=== PATIENT | male | born 1995 | race Two or more races ===

== ENCOUNTER 2021-02-25 07:15 | Emergency (ER) | payer SELFPAY ==
[~2021-02-25] VITALS: Ht 162.6 cm; Wt 69.4 kg
[2021-02-25] MEDS ORDERED: MORPHINE SULFATE 4 MG/ML SYR/VIAL IV ONE (07:45)
[2021-02-25] MEDS ORDERED: SODIUM CHLORIDE 0.9% 1,000 ML IV ONE (07:45)
[2021-02-25] MEDS ORDERED: SODIUM CHLORIDE 0.9% 1,000 ML IVB ONE (07:45)
[2021-02-25] MEDS ORDERED: ONDANSETRON HCL 4 MG/2 ML VIAL IV ONE (07:45)
[2021-02-25 07:48] LABS: Basophils # (auto) 0 10 ^3/uL (0-0.2); Basophils % (auto) 0.1 % (0.0-2.0); Eosinophils # (auto) 0.1 10 ^3/uL (0-0.8); Eosinophils % (auto) 0.9 % (0.0-7.0); Hematocrit 48.9 % (41.0-53.0); Hemoglobin 16.8 g/dL (13.5-17.5); Lymphocytes # (auto) 0.6 10 ^3/uL (0.4-5.4); Lymphocytes % (auto) 4.8 % (10.0-50.0); Mean Corpuscular Hemoglobin 30.3 pg (28.0-32.0); Mean Corpuscular Hgb Conc. 34.3 g/dL (32.0-36.0); Mean Corpuscular Volume 88.4 fL (80.0-100.0); Monocytes # (auto) 0.3 10 ^3/uL (0-1.3); Monocytes % (auto) 2.4 % (0.0-12.0); Neutrophils # (auto) 11.1 10 ^3/uL (1.6-8.6); Neutrophils % (auto) 91.8 % (37.0-80.0); Nucleated Red Blood Cells % 0.2 %; Red Blood Cells 5.53 10^6/uL (4.5-5.90); Red Cell Distribution Width 13.3 % (11.8-14.3); White Blood Cell 12.1 10^3/uL (4.4-10.8)
[2021-02-25 07:55] LABS: Urine Bacteria NONE SEEN /hpf (None Seen); Urine Blood Negative /uL (Negative); Urine Mucus FEW (None Seen); Urine Specific Gravity 1.028 (1.001-1.035); Urine WBC 3 /hpf (0 - 3)
[2021-02-25 08:06] LABS: Albumin 4.5 g/dL (3.4-5.0); Calcium 9.3 mg/dL (8.5-10.1); Potassium 3.8 mmol/L (3.5-5.1)
[2021-02-25 08:09] LABS: BUN/Creatinine Ratio 10.4; Bilirubin, Total 0.7 mg/dL (0.2-1.0); Total Protein 8.2 g/dL (6.4-8.2)
[2021-02-25 08:12] LABS: Alcohol, Urine < 3.0 mg/dL (0-10); Barbiturate Scree,Urine NEGATIVE (NEGATIVE); Benzodiazephine Screen, Urine NEGATIVE (NEGATIVE); Cannabinoid Screen, Urine POSITIVE (NEGATIVE); Cocaine Screen, Urine NEGATIVE (NEGATIVE); Opiate Scree,Urine NEGATIVE (NEGATIVE); Phencyclidine Screen, Urine NEGATIVE (NEGATIVE)
[2021-02-25 08:22] LABS: Amphetamine Screen, Urine NEGATIVE (NEGATIVE)
[2021-02-25] MEDS ORDERED: cefTRIAXone 1GM/50ML D5W 50 ML IV ONE (08:45)
[2021-02-25 10:41] VITALS: BP 91/47
== END 2021-02-25 11:39 | disposition home or self-care (01) ==
LOC: ER 07:15
DX: K52.9 Noninfective gastroenteritis and colitis, unspecified (principal)
CPT/HCPCS: 36415; 74176; 80053; 80307; 81001; 83690; 85025; 96361; 96365; 96375; 99284; J0696; J2270; J2405; J7030

== ENCOUNTER 2021-03-03 07:45 | Inpatient (IN) | payer MEDICAID, OTHER ==
[~2021-03-03] VITALS: Ht 162.6 cm; Wt 66.2 kg
[2021-03-03 08:32] LABS: Urine Bacteria NONE SEEN /hpf (None Seen); Urine Blood Negative /uL (Negative); Urine Mucus FEW (None Seen); Urine Specific Gravity 1.025 (1.001-1.035); Urine WBC 1 /hpf (0 - 3)
[2021-03-03 08:40] LABS: Albumin 4.6 g/dL (3.4-5.0); Calcium 9.1 mg/dL (8.5-10.1); Potassium 3.7 mmol/L (3.5-5.1)
[2021-03-03 08:43] LABS: BUN/Creatinine Ratio 8.5; Bilirubin, Total 1.1 mg/dL (0.2-1.0); Total Protein 8.2 g/dL (6.4-8.2)
[2021-03-03 08:57] LABS: Basophils # (auto) 0.1 10 ^3/uL (0-0.2); Neutrophils # (auto) 5.9 10 ^3/uL (1.6-8.6); Nucleated Red Blood Cells % 0.3 %
[2021-03-03 08:59] LABS: Basophils % (auto) 1.1 % (0.0-2.0); Eosinophils # (auto) 1.4 10 ^3/uL (0-0.8); Eosinophils % (auto) 14.2 % (0.0-7.0); Hematocrit 51.2 % (41.0-53.0); Hemoglobin 18.5 g/dL (13.5-17.5); Lymphocytes # (auto) 1.6 10 ^3/uL (0.4-5.4); Lymphocytes % (auto) 16.2 % (10.0-50.0); Mean Corpuscular Hemoglobin 31.6 pg (28.0-32.0); Mean Corpuscular Hgb Conc. 36.1 g/dL (32.0-36.0); Mean Corpuscular Volume 87.7 fL (80.0-100.0); Monocytes # (auto) 1.1 10 ^3/uL (0-1.3); Neutrophils % (auto) 57.5 % (37.0-80.0); Platelet Count (auto) 193 10^3/uL (140-450); Red Blood Cells 5.84 10^6/uL (4.5-5.90); Red Cell Distribution Width 13.7 % (11.8-14.3); White Blood Cell 10.2 10^3/uL (4.4-10.8)
[2021-03-03] MEDS ORDERED: ONDANSETRON HCL 4 MG/2 ML VIAL IV ONE (11:30)
[2021-03-03] MEDS ORDERED: SODIUM CHLORIDE 0.9% 1,000 ML IVB ONE (11:30)
[2021-03-03] MEDS ORDERED: IOHEXOL 300 MG/ML 100ML BOTTLE IJ ONE (11:42)
[2021-03-03] MEDS ORDERED: PANTOPRAZOLE 40 MG/10 ML VIAL INJ IV ONE (13:15)
[2021-03-03] MEDS ORDERED: metroNIDAZOLE 500MG/100ML 100 ML IV ONE (14:00)
[2021-03-03] MEDS ORDERED: MORPHINE SULF INJ 2 MG/ML SYRINGE 1ML IV PRN (15:15)
[2021-03-03] MEDS ORDERED: ACETAMINOPHEN 325 MG TAB PO PRN (15:15)
[2021-03-03] MEDS ORDERED: HYDROcodone-ACET 5/325MG TAB PO PRN (15:15)
[2021-03-03] MEDS ORDERED: ONDANSETRON HCL 4 MG/2 ML VIAL IV PRN (15:15)
[2021-03-03] MEDS: LACTATED RINGER'S 1,000 ML IV SCH (15:34)
[2021-03-03] MEDS: NYSTATIN (MOUTH-THROAT) 500,000 UNITS/5 ML SUSP MT SCH ×2 (18:08→21:34)
[2021-03-03] MEDS: metroNIDAZOLE 500MG/100ML 100 ML IV SCH (21:34)
[2021-03-03 21:47] VITALS: BP 121/67
[2021-03-04] MEDS: LACTATED RINGER'S 1,000 ML IV SCH ×3 (01:54→19:30)
[2021-03-04 05:42] VITALS: BP 113/68
[2021-03-04] MEDS: NYSTATIN (MOUTH-THROAT) 500,000 UNITS/5 ML SUSP MT SCH ×4 (05:44→21:58)
[2021-03-04] MEDS: metroNIDAZOLE 500MG/100ML 100 ML IV SCH ×3 (05:44→21:56)
[2021-03-04 06:48] LABS: Hematocrit 46.2 % (41.0-53.0); Hemoglobin 16.2 g/dL (13.5-17.5); Mean Corpuscular Hemoglobin 31.4 pg (28.0-32.0); Mean Corpuscular Hgb Conc. 35.1 g/dL (32.0-36.0); Mean Corpuscular Volume 89.6 fL (80.0-100.0); Platelet Count (auto) 170 10^3/uL (140-450); Red Blood Cells 5.16 10^6/uL (4.5-5.90); Red Cell Distribution Width 13.6 % (11.8-14.3); White Blood Cell 8.5 10^3/uL (4.4-10.8)
[2021-03-04 06:50] LABS: Calcium 8.5 mg/dL (8.5-10.1); Magnesium 2.6 mg/dL (1.6-2.6); Potassium 3.9 mmol/L (3.5-5.1)
[2021-03-04 06:53] LABS: BUN/Creatinine Ratio 10.8
[2021-03-04 07:04] LABS: Band Neutrophils % (manual) 0; Basophils % (manual) 0 (0.0-2.0); Blast Cells 0; Metamyelocytes % 0; Myelocytes % 0; Promyelocytes % 0; Reactive Lymphocytes 0
[2021-03-04 08:06] LABS: Eosinophils % (manual) 20 (0-7); Lymphocytes % (manual) 21 (10.0-50.0); Monocytes % (manual) 8 (0-12)
[2021-03-04 09:00] VITALS: BP 119/67
[2021-03-04] MEDS: levoFLOXacin 500MG 100 ML IV SCH (09:02)
[2021-03-04] MEDS ORDERED: PANTOPRAZOLE 40 MG/10 ML VIAL INJ IV SCH ×2 (10:00→22:00)
[2021-03-04 13:00] VITALS: BP 123/66
[2021-03-04 16:43] VITALS: BP 118/56
[2021-03-04 18:59] LABS: INR 1.19 (0.9-1.15)
[2021-03-04 22:16] VITALS: BP 120/62
[2021-03-05 04:57] VITALS: BP 107/56
[2021-03-05] MEDS: NYSTATIN (MOUTH-THROAT) 500,000 UNITS/5 ML SUSP MT SCH ×2 (06:02→11:34)
[2021-03-05] MEDS: LACTATED RINGER'S 1,000 ML IV SCH (06:02)
[2021-03-05] MEDS: metroNIDAZOLE 500MG/100ML 100 ML IV SCH ×2 (06:02→16:06)
[2021-03-05] MEDS ORDERED: LIDOCAINE VISCOUS 2% 15ML UD ONE (08:27)
[2021-03-05] MEDS ORDERED: SODIUM CHLORIDE LOCK 10 ML ONE (08:27)
[2021-03-05] MEDS ORDERED: MIDAZOLAM HCL 5 MG/ML-1ML VIAL ONE (08:28)
[2021-03-05] MEDS ORDERED: diphenhdrAMINE HCL 50 MG/1 ML VL ONE (08:28)
[2021-03-05] MEDS ORDERED: fentaNYL CITRATE 100 MCG/2 ML VL ONE (08:28)
[2021-03-05 09:00] VITALS: BP 106/57
[2021-03-05] MEDS ORDERED: PROPOFOL 10 MG/ML 20 ML IV ONE (09:38)
[2021-03-05] MEDS ORDERED: LIDOCAINE 1% (LOCAL ANESTH.) PF 5ml SDV ONE (09:38)
[2021-03-05] MEDS: levoFLOXacin 500MG 100 ML IV SCH (11:34)
[2021-03-05 13:00] VITALS: BP 125/84
[2021-03-05] MEDS ORDERED: HYDROmorphone HCL 2 MG/ML VL IV ONE (13:45)
[2021-03-05] MEDS ORDERED: PANTOPRAZOLE 40 MG/10 ML VIAL INJ IV ONE (13:45)
[2021-03-05 17:00] VITALS: BP 109/56
[2021-03-05] MEDS ORDERED: PANTOPRAZOLE 40 MG TAB PO SCH (22:00)
== END 2021-03-05 19:30 | disposition home or self-care (01) | DRG 249 ==
LOC: ER 07:45 → OVERFLOW 15:05 → WEST WING 18:33
PROVIDERS: ADMIT Nurse Practitioner Acute Care; ATTEND Family Medicine
PROC: 0DB68ZX Excision of Stomach, Via Natural or Artificial Opening Endoscopic, Diagnostic (ICD-10-PCS; principal; 2021-03-05 10:20)
DX: K52.9 Noninfective gastroenteritis and colitis, unspecified (principal); K29.71 Gastritis, unspecified, with bleeding; F12.90 Cannabis use, unspecified, uncomplicated; Z71.51 Drug abuse counseling and surveillance of drug abuser; Z20.822 Contact with and (suspected) exposure to COVID-19
CPT/HCPCS: 36415; 43239; 74177; 80048; 80053; 81001; 82270; 83690; 83735; 85007; 85025; 85027; 85610; 86850; 86900; 86901; 87045; 87426; 87427; 93005; 96361; 96365; 96375; C9113; G0378; J1956; J2250; J2405; J2704; J3490

== ENCOUNTER 2022-04-06 10:43 | Emergency (ER) | payer MEDICAID ==
[~2022-04-06] VITALS: Ht 157.5 cm; Wt 66.7 kg
[2022-04-06 11:27] LABS: Basophils # (auto) 0 10 ^3/uL (0-0.2); Basophils % (auto) 0.5 % (0.0-2.0); Eosinophils # (auto) 0 10 ^3/uL (0-0.8); Eosinophils % (auto) 0.1 % (0.0-7.0); Hematocrit 50.7 % (41.0-53.0); Hemoglobin 17.3 g/dL (13.5-17.5); Lymphocytes # (auto) 0.7 10 ^3/uL (0.4-5.4); Lymphocytes % (auto) 8.5 % (10.0-50.0); Mean Corpuscular Hemoglobin 29.9 pg (28.0-32.0); Mean Corpuscular Volume 87.8 fL (80.0-100.0); Monocytes # (auto) 0.6 10 ^3/uL (0-1.3); Monocytes % (auto) 7.1 % (0.0-12.0); Neutrophils # (auto) 6.5 10 ^3/uL (1.6-8.6); Neutrophils % (auto) 83.8 % (37.0-80.0); Nucleated Red Blood Cells % 0.1 %; Red Blood Cells 5.78 10^6/uL (4.5-5.90); Red Cell Distribution Width 13.5 % (11.8-14.3); White Blood Cell 7.8 10^3/uL (4.4-10.8)
[2022-04-06 11:29] LABS: Amphetamine Screen, Urine NEGATIVE (NEGATIVE); Barbiturate Scree,Urine NEGATIVE (NEGATIVE); Benzodiazephine Screen, Urine NEGATIVE (NEGATIVE); Cannabinoid Screen, Urine POSITIVE (NEGATIVE); Cocaine Screen, Urine NEGATIVE (NEGATIVE); Opiate Scree,Urine NEGATIVE (NEGATIVE); Phencyclidine Screen, Urine NEGATIVE (NEGATIVE)
[2022-04-06 11:49] LABS: Calcium 9.5 mg/dL (8.5-10.1); Potassium 3.9 mmol/L (3.5-5.1)
[2022-04-06 11:51] LABS: BUN/Creatinine Ratio 8.6; Bilirubin, Total 1.3 mg/dL (0.2-1.0); Total Protein 8.4 g/dL (6.4-8.2)
[2022-04-06 11:56] LABS: Urine Amorphous Crystal MOD /hpf (None Seen); Urine Bacteria NONE SEEN /hpf (None Seen); Urine Blood Negative /uL (Negative); Urine Mucus FEW (None Seen); Urine Specific Gravity 1.028 (1.001-1.035); Urine WBC 7 /hpf (0 - 3); Urine WBC Clumps PRESENT /hpf (None Seen)
[2022-04-06] MEDS ORDERED: FAMO20TA10 PO (16:34)
[2022-04-06] MEDS ORDERED: PROC10TA2 PO (16:34)
[2022-04-06 16:58] VITALS: BP 106/63
== END 2022-04-06 16:59 | disposition home or self-care (01) ==
LOC: ER 10:43
DX: F12.188 Cannabis abuse with other cannabis-induced disorder (principal)
CPT/HCPCS: 36415; 74177; 80053; 80307; 81001; 85025

== ENCOUNTER 2022-04-09 10:52 | Emergency (ER) | payer MEDICAID ==
[~2022-04-09] VITALS: Ht 157.5 cm; Wt 65.8 kg
[~2022-04-09 10:52] MED LIST: FAMO20TA10 PO; PROC10TA2 PO
[2022-04-09 11:41] LABS: Basophils # (auto) 0 10 ^3/uL (0-0.2); Basophils % (auto) 0.3 % (0.0-2.0); Eosinophils # (auto) 0 10 ^3/uL (0-0.8); Hematocrit 52.3 % (41.0-53.0); Hemoglobin 17.6 g/dL (13.5-17.5); Lymphocytes # (auto) 0.5 10 ^3/uL (0.4-5.4); Lymphocytes % (auto) 5.7 % (10.0-50.0); Mean Corpuscular Hemoglobin 29.6 pg (28.0-32.0); Mean Corpuscular Hgb Conc. 33.6 g/dL (32.0-36.0); Mean Corpuscular Volume 88.1 fL (80.0-100.0); Monocytes # (auto) 0.4 10 ^3/uL (0-1.3); Monocytes % (auto) 4.2 % (0.0-12.0); Neutrophils # (auto) 8.2 10 ^3/uL (1.6-8.6); Neutrophils % (auto) 89.8 % (37.0-80.0); Nucleated Red Blood Cells % 0.2 %; Red Blood Cells 5.94 10^6/uL (4.5-5.90); Red Cell Distribution Width 13.8 % (11.8-14.3); White Blood Cell 9.1 10^3/uL (4.4-10.8)
[2022-04-09 12:00] LABS: Albumin 4.7 g/dL (3.4-5.0); Calcium 9.3 mg/dL (8.5-10.1); Potassium 3.7 mmol/L (3.5-5.1)
[2022-04-09 12:02] LABS: Bilirubin, Total 1.1 mg/dL (0.2-1.0); Total Protein 7.9 g/dL (6.4-8.2)
[2022-04-09] MEDS ORDERED: HALOPERIDOL LACTATE 5 MG/ML INJ VIAL IM ONE (12:45)
[2022-04-09] MEDS ORDERED: LIDOCAINE VISCOUS 2% 15ML UD PO ONE (12:45)
[2022-04-09] MEDS ORDERED: ALUM & MAG HYDROX-SIMETH LIQ(MAALOX) 30 ML PO ONE (12:45)
[2022-04-09] MEDS ORDERED: LACTATED RINGER'S 1,000 ML IV ONE (12:45)
[2022-04-09] MEDS ORDERED: ONDANSETRON HCL 4 MG/2 ML VIAL IV ONE (12:45)
[2022-04-09] MEDS ORDERED: FAMOTIDINE (10MG/ML) 2ML VL IV ONE (12:45)
[2022-04-09 14:36] VITALS: BP 122/85
== END 2022-04-09 17:01 | disposition home or self-care (01) ==
LOC: EDBD 10:52 → EDUNIT# 10:52 → ER 10:52
DX: F12.188 Cannabis abuse with other cannabis-induced disorder (principal)
CPT/HCPCS: 36415; 80053; 85025; 93005